=== PATIENT | female | born 1975 | race African-American/Black ===

== ENCOUNTER 2020-12-21 20:58 | Emergency (ER) | payer SELFPAY ==
[~2020-12-21] VITALS: Ht 152.4 cm; Wt 81.8 kg
[2020-12-21 22:31] LABS: BASO # 0.1 (0.0-0.2); BASO % 0.6 % (0.0-2.0); EOS # 0.1 (0.0-0.7); EOS % 0.5 % (0-4.0); GRAN # 8.1 (1.4-6.5); GRAN % 69.9 % (42.2-75.2); HEMATOCRIT 40.8 % (37.0-47.0); HEMOGLOBIN 12.4 g/dl (12.5-16.0); LYMPH # 2.6 (1.2-3.4); LYMPH % 22.6 % (20.0-51.0); MEAN CELL VOLUME 83 fl (80.0-100.0); MEAN CORPUSCULAR HEMOGLOBIN 25 pg (27.0-31.0); MEAN CORPUSCULAR HGB CONC 30 g/dl (33.0-37.0); MEAN PLATELET VOLUME 11.8 fl (7.4-10.4); MONO # 0.7 (0.1-0.6); MONO % 6.1 % (1.7-9.3); PLATELET COUNT 338 K/mm3 (130-400); RED BLOOD COUNT 4.93 M/mm3 (4.10-5.30); REDCELL DISTRIBUTION WIDTH-CV 14.5 % (11.5-14.5)
[2020-12-21 22:41] LABS: ALANINE AMINOTRANSFERASE 19 U/L (0-55); ALBUMIN 4.4 gm/dL (3.5-5.0); ALKALINE PHOSPHATASE 60 U/L (0-750); ANION GAP 13 mmol/L; AST,SGOT 21 U/L (5-34); BILIRUBIN,TOTAL 0.2 mg/dL (0.2-1.2); BLOOD UREA NITROGEN 10 mg/dL (7-19); CALCIUM 9.5 mg/dL (8.4-10.2); CARBON DIOXIDE 18 mEq/L (22-29); CHLORIDE 107 mmol/L (98-107); CREATININE, serum 0.83 mg/dL (0.57-1.11); GLUCOSE 108 mg/dL (70-99); POTASSIUM 3.8 mmol/L (3.5-4.5); SODIUM 138 mmol/L (136-145); TOTAL PROTEIN 8.8 gm/dL (6.2-8.1)
[2020-12-21 22:49] LABS: TROPONIN-I < 0.010 ng/mL (0.00-0.033)
[2020-12-21 23:28] VITALS: BP 151/78; PULSE 81; TEMP 98.4
== END 2020-12-21 23:28 | disposition home or self-care (01) ==
LOC: COL.ER 20:58
PROVIDERS: Nurse Practitioner
DX: R00.2 Palpitations (principal)

== ENCOUNTER 2020-12-24 08:10 | Emergency (ER) | payer SELFPAY ==
[~2020-12-24] VITALS: Ht 152.4 cm; Wt 81.8 kg
[2020-12-24 08:26] VITALS: TEMP 98.1
[2020-12-24 09:29] LABS: BASO # 0.1 (0.0-0.2); BASO % 0.5 % (0.0-2.0); EOS % 0.3 % (0-4.0); GRAN % 75.2 % (42.2-75.2); HEMATOCRIT 38.7 % (37.0-47.0); HEMOGLOBIN 11.9 g/dl (12.5-16.0); LYMPH # 1.8 (1.2-3.4); LYMPH % 19.4 % (20.0-51.0); MEAN CELL VOLUME 82 fl (80.0-100.0); MEAN CORPUSCULAR HEMOGLOBIN 25 pg (27.0-31.0); MEAN CORPUSCULAR HGB CONC 31 g/dl (33.0-37.0); MEAN PLATELET VOLUME 10.6 fl (7.4-10.4); MONO # 0.4 (0.1-0.6); MONO % 4.3 % (1.7-9.3); PLATELET COUNT 405 K/mm3 (130-400); RED BLOOD COUNT 4.74 M/mm3 (4.10-5.30); REDCELL DISTRIBUTION WIDTH-CV 14.2 % (11.5-14.5)
[2020-12-24 09:47] LABS: ALBUMIN 4.3 gm/dL (3.5-5.0); BILIRUBIN,TOTAL 0.4 mg/dL (0.2-1.2); CALCIUM 9.3 mg/dL (8.4-10.2); CREATININE, serum 0.91 mg/dL (0.57-1.11); POTASSIUM 3.9 mmol/L (3.5-4.5); TOTAL PROTEIN 8.4 gm/dL (6.2-8.1)
[2020-12-24 10:17] VITALS: BP 151/85; PULSE 67
== END 2020-12-24 10:17 | disposition home or self-care (01) ==
LOC: COL.ER 08:10
PROVIDERS: Personal Emergency Response Attendant
DX: R00.2 Palpitations (principal)

== ENCOUNTER 2021-01-06 13:19 | Emergency (ER) | payer SELFPAY ==
[~2021-01-06] VITALS: Ht 152.4 cm; Wt 81.4 kg
[2021-01-06 13:26] VITALS: TEMP 97.8
[2021-01-06 14:02] LABS: BASO # 0.1 K/mm3 (0.0-0.2); BASO % 0.8 % (0.0-2.0); EOS % 0.4 % (0-4.0); GRAN # 4.7 K/mm3 (1.4-6.5); GRAN % 63.1 % (42.2-75.2); HEMATOCRIT 37.5 % (37.0-47.0); LYMPH # 2.2 K/mm3 (1.2-3.4); MEAN CELL VOLUME 78 fl (80.0-100.0); MEAN CORPUSCULAR HEMOGLOBIN 25 pg (27.0-31.0); MEAN CORPUSCULAR HGB CONC 32 g/dl (33.0-37.0); MONO # 0.5 K/mm3 (0.1-0.6); MONO % 6.6 % (1.7-9.3); PLATELET COUNT 275 K/mm3 (130-400); RED BLOOD COUNT 4.79 M/mm3 (4.10-5.30); REDCELL DISTRIBUTION WIDTH-CV 13.7 % (11.5-14.5)
[2021-01-06 14:32] LABS: ALANINE AMINOTRANSFERASE 23 U/L (0-55); ALBUMIN 4.7 gm/dL (3.5-5.0); ALKALINE PHOSPHATASE 56 U/L (0-750); ANION GAP 13 mmol/L (7-16); AST,SGOT 27 U/L (5-34); BILIRUBIN,TOTAL 0.3 mg/dL (0.2-1.2); BLOOD UREA NITROGEN 13 mg/dL (7-19); CALCIUM 9.9 mg/dL (8.4-10.2); CARBON DIOXIDE 22 mmol/L (22-29); CHLORIDE 103 mmol/L (98-107); CREATININE, serum 1.13 mg/dL (0.57-1.11); GLUCOSE 93 mg/dL (70-99); POTASSIUM 3.5 mmol/L (3.5-4.5); SODIUM 138 mmol/L (136-145); TOTAL PROTEIN 8.8 gm/dL (6.2-8.1)
[2021-01-06 14:38] LABS: TROPONIN-I < 0.010 ng/mL (0.00-0.033)
[2021-01-06] MEDS ORDERED: PRINZIDE 12.5 M1 TAB PO (15:07)
[2021-01-06 15:20] VITALS: BP 127/81; PULSE 68
== END 2021-01-06 15:23 | disposition home or self-care (01) ==
LOC: COL.ER 13:19
PROVIDERS: Family Medicine
DX: I10 Essential (primary) hypertension (principal)

== ENCOUNTER 2021-01-17 14:16 | Emergency (ER) | payer SELFPAY ==
[2021-01-17 14:16] VITALS: TEMP 98.7
[~2021-01-17 14:16] MED LIST: PRINZIDE 12.5 M1 TAB PO
[2021-01-17 15:20] VITALS: BP 124/73; PULSE 74
== END 2021-01-17 15:20 | disposition home or self-care (01) ==
LOC: COL.ER 14:16
DX: I10 Essential (primary) hypertension (principal); F41.9 Anxiety disorder, unspecified; Z79.899 Other long term (current) drug therapy

== ENCOUNTER 2021-01-24 14:40 | Emergency (ER) | payer SELFPAY ==
[~2021-01-24] VITALS: Ht 152.4 cm; Wt 79.5 kg
[2021-01-24 14:47] VITALS: TEMP 98.1
[2021-01-24 15:02] LABS: BASO % 0.5 % (0.0-2.0); EOS # 0.1 K/mm3 (0.0-0.7); EOS % 0.7 % (0-4.0); GRAN % 52.3 % (42.2-75.2); HEMOGLOBIN 10.8 g/dl (12.5-16.0); LYMPH % 39.6 % (20.0-51.0); MEAN CELL VOLUME 80 fl (80.0-100.0); MEAN CORPUSCULAR HEMOGLOBIN 25 pg (27.0-31.0); MEAN CORPUSCULAR HGB CONC 31 g/dl (33.0-37.0); MEAN PLATELET VOLUME 12.7 fl (7.4-10.4); MONO # 0.5 K/mm3 (0.1-0.6); MONO % 6.6 % (1.7-9.3); PLATELET COUNT 321 K/mm3 (130-400); RED BLOOD COUNT 4.33 M/mm3 (4.10-5.30); REDCELL DISTRIBUTION WIDTH-CV 14.2 % (11.5-14.5)
[2021-01-24 15:05] LABS: HEMATOCRIT 34.8 % (37.0-47.0)
[2021-01-24 15:07] LABS: INR 1.2 (0.8-3.0); PROTHROMBIN TIME 13.2 SECONDS (9.7-12.8)
[2021-01-24 15:21] LABS: ALBUMIN 4.2 gm/dL (3.5-5.0); BILIRUBIN,TOTAL 0.4 mg/dL (0.2-1.2); CALCIUM 9.5 mg/dL (8.4-10.2); CREATININE, serum 1.08 mg/dL (0.57-1.11); POTASSIUM 3.5 mmol/L (3.5-4.5); TOTAL PROTEIN 7.6 gm/dL (6.2-8.1)
[2021-01-24 15:27] LABS: TROPONIN-I 0.018 ng/mL (0.00-0.033)
[2021-01-24 15:51] VITALS: BP 111/60; PULSE 58
== END 2021-01-24 15:51 | disposition home or self-care (01) ==
LOC: COL.ER 14:40
PROVIDERS: Family Medicine
DX: F41.9 Anxiety disorder, unspecified (principal); R00.2 Palpitations; I10 Essential (primary) hypertension